=== PATIENT | female | born 1935 | race Caucasian/White ===

== ENCOUNTER 2022-08-12 14:32 | Outpatient (CLI) | payer MEDICARE, BC | END 2022-08-12 14:33 | disposition home or self-care (01) | LOC: CSHRAD 14:32 | PROVIDERS: ATTEND Physician Assistant | DX: M48.56XA Collapsed vertebra, not elsewhere classified, lumbar region, initial encounter for fracture (principal); S22.008A Other fracture of unspecified thoracic vertebra, initial encounter for closed fracture; M47.816 Spondylosis without myelopathy or radiculopathy, lumbar region; S22.051D Stable burst fracture of T5-T6 vertebra, subsequent encounter for fracture with routine healing; S22.081D Stable burst fracture of T11-T12 vertebra, subsequent encounter for fracture with routine healing | CPT/HCPCS: 72070; 72100 ==

== ENCOUNTER 2025-05-20 17:11 | Observation (INO) | payer BC, MEDICARE ==
[~2025-05-20 17:11] MED LIST: Iopamidol 370 76% 100 ML VIAL ONE
[2025-05-20 18:36] LABS: #Basophils 0.03 10x3/uL (0.0-0.2); #Eosinophils 0.03 10x3/uL (0.0-0.5); #Monocytes 0.35 10x3/uL (0.0-1.1); #Neutrophils 2.98 10x3/uL (1.5-8.4); %Basophils 0.7 % (0.0-2.0); %Eosinophils 0.7 % (0.0-6.0); %Lymphocytes 21.1 % (18.0-47.0); %Monocytes 8.1 % (0.0-10.0); %Neutrophils 69.2 % (40.0-75.0); Hematocrit 37.9 % (34.9-44.5); Hemoglobin 12.6 g/dL (12.0-15.5); Mean Corpuscular Hemoglobin 32.4 pg (27.0-33.0); Mean Corpuscular Volume 97.4 fL (81.6-98.3); Platelet Count 181 10x3/uL (150-450); Red Blood Cell (RBC) Count 3.89 10x6/uL (3.90-5.03); White Blood Cell (WBC) Count 4.31 10x3/uL (3.5-10.5)
[2025-05-20 18:52] LABS: ALT (SGPT) 15 U/L (Less than 34); AST (SGOT) 27 U/L (11-34); Albumin 3.9 g/dL (3.1-4.5); Alkaline Phosphatase 76 U/L (40-110); Anion Gap 13 mmol/L (10-20); BUN (Urea Nitrogen) 36 mg/dL (9.8-20.1); Bilirubin, Total 0.3 mg/dL (0.3-1.2); Calc. Creatinine Clearance 0 mL/min (70-130); Calcium 9.0 mg/dL (7.8-10.44); Carbon Dioxide 26 mmol/L (23-31); Chloride 104 mmol/L (98-107); Globulin 2.7 g/dL (2.4-3.5); Glucose 76 mg/dL (83-110); Potassium 4.4 mmol/L (3.5-5.1); Sodium 139 mmol/L (136-145)
[2025-05-20 18:53] LABS: Troponin I Less than 0.010 ng/mL (< 0.028)
[2025-05-20 19:25] LABS: Glucose, Urine (Dipstick) Normal (Negative); Leukocyte 500 (Negative); Protein, Urine (Dipstick) 30 mg/dl (Neg-Trace); Specific Gravity, Urine 1.015 (1.005-1.030)
[2025-05-20 19:43] LABS: CAUTI Indications for Culture Alt mental st,lethar; RBC/HPF None Seen HPF (0-3)
[2025-05-20 19:44] LABS: Bacteria/HPF None Seen HPF (None Seen); Urine Culture Reflex No No
[2025-05-20 22:23] VITALS: BMI 21.2
[2025-05-20] MEDS ORDERED: hydrALAZINE 20 MG/ML VIAL SLOW IVP PRN (22:45)
[2025-05-20] MEDS ORDERED: Ondansetron PF 4 MG/2 ML Vial IVP PRN (22:45)
[2025-05-20] MEDS ORDERED: Senokot S 8.6-50 MG TAB PO PRN (22:45)
[2025-05-20] MEDS ORDERED: Calcium Carbonate 500 MG ChewTAB PO PRN (22:45)
[2025-05-21] MEDS: Acetaminophen 325 MG TAB PO PRN (01:46)
[2025-05-21 04:14] LABS: #Basophils Less than 0.03 10x3/uL (0.0-0.2); #Eosinophils 0.06 10x3/uL (0.0-0.5); #Monocytes 0.31 10x3/uL (0.0-1.1); #Neutrophils 2.23 10x3/uL (1.5-8.4); %Basophils 0.5 % (0.0-2.0); %Eosinophils 1.6 % (0.0-6.0); %Lymphocytes 28.9 % (18.0-47.0); %Monocytes 8.4 % (0.0-10.0); %Neutrophils 60.3 % (40.0-75.0); Hematocrit 34.7 % (34.9-44.5); Hemoglobin 11.9 g/dL (12.0-15.5); Mean Corpuscular Hemoglobin 32.7 pg (27.0-33.0); Mean Corpuscular Volume 95.3 fL (81.6-98.3); Platelet Count 158 10x3/uL (150-450); Red Blood Cell (RBC) Count 3.64 10x6/uL (3.90-5.03); White Blood Cell (WBC) Count 3.70 10x3/uL (3.5-10.5)
[2025-05-21 04:29] LABS: ALT (SGPT) 12 U/L (Less than 34); AST (SGOT) 24 U/L (11-34); Albumin 3.5 g/dL (3.1-4.5); Alkaline Phosphatase 64 U/L (40-110); Anion Gap 11 mmol/L (10-20); BUN (Urea Nitrogen) 24 mg/dL (9.8-20.1); Bilirubin, Total 0.5 mg/dL (0.3-1.2); Calc. Creatinine Clearance 57 mL/min (70-130); Calcium 8.6 mg/dL (7.8-10.44); Carbon Dioxide 27 mmol/L (23-31); Cardiac Risk 2.3 (Less than 4.5); Chloride 104 mmol/L (98-107); Cholesterol 137 mg/dl (< 200 Desired); Globulin 2.6 g/dL (2.4-3.5); Glucose 85 mg/dL (83-110); HDL Cholesterol 59 mg/dL (>60 Neg Risk); LDL Cholesterol, Calculated 62 mg/dL; Potassium 3.8 mmol/L (3.5-5.1); Sodium 138 mmol/L (136-145); Triglycerides 81 mg/dL (Less than 150)
[2025-05-21] MEDS: Mirabegron ER 25 MG ER.TAB PO SCH (08:40)
[2025-05-21] MEDS: Enoxaparin 40 MG (0.4 mL) SYRINGE SC SCH (08:40)
[2025-05-21] MEDS: Aspirin 81 mg Enteric Coated Tablet PO SCH (08:41)
[2025-05-21 12:24] VITALS: BP 140/81; TEMP 98.1
== END 2025-05-21 15:35 | disposition home or self-care (01) ==
LOC: SUATTDRO 17:11 → CSHERS 17:11 → CSHTELE 21:40
PROVIDERS: ADMIT Internal Medicine; ATTEND Student in an Organized Health Care Education/Training Program
PROC: B24BZZZ Ultrasonography of Heart with Aorta (ICD-10-PCS; principal; 2025-05-21)
DX: R47.01 Aphasia (principal); R20.2 Paresthesia of skin; G31.84 Mild cognitive impairment of uncertain or unknown etiology; I08.0 Rheumatic disorders of both mitral and aortic valves; E78.5 Hyperlipidemia, unspecified; Z79.82 Long term (current) use of aspirin; Z79.899 Other long term (current) drug therapy
CPT/HCPCS: 70496; 70498; 70551; 71045; 80053 ×2; 80061; 81001; 83036; 84484; 85025 ×2; 93005; 93306; 94760; 99285; J1650; J7030; 36415; Q9967